=== PATIENT | female | born 1950 | race Caucasian/White ===

== ENCOUNTER 2016-09-18 09:56 | Day surgery (SDC) | payer OTHER ==
[~2016-09-18] VITALS: Ht 162.6 cm; Wt 85.4 kg
[2016-09-18] MEDS ORDERED: ATORVASTATIN (10:47)
[2016-09-18] MEDS ORDERED: VALSARTAN (10:47)
[2016-09-18] MEDS ORDERED: METFORMIN (10:47)
[2016-09-18] MEDS ORDERED: HYDROXYCHLOROQUINE (10:47)
[2016-09-18 10:49] VITALS: Ht 162.6 cm; Wt 85.4 kg
[2016-09-18] MEDS ORDERED: PROPOFOL 20 ML ONE (10:56)
[2016-09-18] MEDS ORDERED: MIDAZOLAM 1 MG/ML 2 ML INJ ONE (10:57)
[2016-09-18 11:06] VITALS: BP 153/71; PULSE 70; RESP 18
[2016-09-18 11:14] VITALS: BP 153/71; PULSE 70; RESP 12
[2016-09-18 12:29] VITALS: BP 122/62; PULSE 53; RESP 16
--- NOTE | 2016-09-18 14:13 | GILP ---
DATE OF PROCEDURE: 09/18/2016 NAME OF PROCEDURE: Colonoscopy and biopsy. SURGEON: Chris Vuong MD PREOPERATIVE DIAGNOSES: 1. Change in bowel habit. 2. Iron deficiency anemia. POSTOPERATIVE DIAGNOSES: 1. Colonoscopy all the way to the cecum. 2. Small transverse colon polyp was removed using the biopsy forceps. 3. Internal hemorrhoids. INDICATION FOR THE PROCEDURE: Ms. Carla Pereira is a 65-year-old female patient who was noted to have a change in the bowel habit and iron-deficiency anemia. Patient was scheduled for colonoscopy for further evaluation. The procedure and possible complications are well explained to the patient. The patient understood and consented to the procedure. DESCRIPTION OF PROCEDURE: Under the influence of anesthesia, the colonoscope was carefully introduc ed in the rectum and under direct vision, it was advanced all the way to the cecum. FINDINGS: The patient had a transverse colon polyp and it was removed using the biopsy forceps. Sh e had internal hemorrhoids. She tolerated the procedure very well and there was no complication from the procedure. At the end of the procedure, she was awake with stable vital signs and she was discharged home to the care of h er family. IMPRESSION: 1. Colonoscopy all the way to the cecum. 2. Small transverse colon polyp was removed using the biopsy forceps. 3. Internal hemorrhoids. PLAN: The patient will need next screening colonoscopy in 10 years. Dictated By: CHRIS BUITRAGO/NBA Conf#: [id number] DID#: [id number] CC: CHRIS VUONG MD;*EndCC*
== END 2016-09-18 13:13 | disposition home or self-care (01) ==
LOC: GIL 09:56
PROVIDERS: ATTEND Internal Medicine Gastroenterology
DX: D12.3 Benign neoplasm of transverse colon (principal); D50.9 Iron deficiency anemia, unspecified; K64.8 Other hemorrhoids; E11.9 Type 2 diabetes mellitus without complications; I10 Essential (primary) hypertension; E66.9 Obesity, unspecified; Z68.32 Body mass index [BMI] 32.0-32.9, adult
CPT/HCPCS: 45380; 82962; 88305; J2250